=== PATIENT | male | born 1990 | race Caucasian/White ===

== ENCOUNTER 2024-09-06 22:49 | Emergency (ER) | payer OTHER, SELFPAY ==
[2024-09-06 22:52] VITALS: BP 116/74
[2024-09-07 00:28] LABS: Urine Albumin Negative (Neg - Trace); Urine Bilirubin Negative (Negative); Urine Character Clear (Clear); Urine Color Yellow; Urine Glucose Negative (Negative); Urine Ketone Negative (Negative); Urine Leukocyte Negative (Negative); Urine Nitrite Negative (Negative); Urine Occult Blood Negative (Negative); Urine Urobilinogen Negative (Neg - 1+)
--- NOTE | 2024-09-07 00:39 | ED.GENMED ---
History of Present Illness
General
Chief Complaint: Urinary Symptoms
Source: patient
Exam Limitations: none
Time Seen by Provider: 09/07/24 00:15
History of Present Illness
History of Present Illness:
This is a 34 year old male that comes in with c/o urinary tract infection. States that he had been treated for a UTi but he did not take his medication as he should have as he would forget. States that today he masturbated and he doesn't know if he
aggravated things. States that he has urinary burning and he felt that his penis was swollen. States that he had one Bactrim at home and he took this. Denies any fever, chills, chest pain, SOB, abd pain, nausea, vomiting, diarrhea, headache,
dizziness or urinary frequency.
Past History
Past History
ED Past Medical History: Other (UTI, )
ED Past Surgical History: Orthopedic (Left ACL repair) and Tonsilectomy
Social History
Tobacco: Non-smoker
Alcohol: None
Personal: Single
Living: alone
Review of Systems
Review of Systems
All Other Systems: ROS reviewed and negative except as documented in HPI and ROS
Constitutional: Reports no symptoms; Denies fever or chills
EENT: Reports no symptoms
Respiratory: Reports no symptoms; Denies cough or trouble breathing
Cardiac: Reports no symptoms; Denies chest pain
ABD/GI: Reports no symptoms; Denies abdominal pain, nausea, vomiting or diarrhea
: Reports dysuria; Denies frequency or urgency
Musculoskeletal: Reports no symptoms
Skin: Reports no symptoms
Neurological: Reports no symptoms; Denies dizzy or headache
Psychiatric: Reports no symptoms
Phy Exam
General Physical Exam
General Presentation: well appearing and no apparent distress
General age: appears stated age
General Skin: warm and dry
General Habitus: normal
General Mental: alert
General Hydration: appears well hydrated
ENT Exam
ENT Exam: TM's normal, pharynx normal and neck supple
Eye Exam
Eye Exam: EOMI
Cardiovascular Exam
Cardiovascular Exam: regular rate/rhythm, no edema, no murmur and normal peripheral pulses
Pulmonary Exam
Pulmonary Exam: lungs clear, no respiratory distress, no rales, chest non tender, no crackles, no rhonchi, no wheezing and no cough
Gastrointestinal Exam
Gastrointestinal Exam: normal bowel sounds, non tender, soft, no organomegaly, no pulsatile mass and non distended
Genitourinary Exam Male
Exam Male: circumcised, no discharge, no lesions and other (negative for penial swelling, or redness)
Musculoskeletal Exam
Musculoskeletal Exam: full ROM and no edema
Skin Exam
Skin Exam: normal color, warm/dry, no rash and no petechia
Psychiatric Exam
Psychiatric Exam: normal mood/affect
Course
Orders/Labs/Results
Orders:
Orders
09/07/24 00:19
Urinalysis Reflex To Culture Urgent
Date Specimen was Collected: 09/07/24
Time Specimen was Collected: 00:18
Urine negative or infection.
Vital Signs
Initial and Last Documented VS:
Initial Vital Signs
Temp Pulse Resp BP Pulse Ox
98.4 F 80 20 116/74 98
09/06/24 22:52 09/06/24 22:52 09/06/24 22:52 09/06/24 22:52 09/06/24 22:52
Last Documented Vital Signs
Temp Pulse Resp BP Pulse Ox
98.4 F 80 20 116/74 98
09/06/24 22:52 09/06/24 22:52 09/06/24 22:52 09/06/24 22:52 09/06/24 22:52
MDM/Problems Addressed
Differential Diagnosis Includes:
Small tears on the penis. UTi
MDM/Problems Addressed:
This is a 34 year old male that comes in with c/o feeling like he has a UTI. States that he masturbated today and after this he thought he had a UTI. Patient took One Bactrim that he had at home.
Will check urine.
Back into see patient. Explained that his urine is negative for infection or blood. There may be little cuts on the penis that are not seen due to his masturbating. Explained that a GC and chlamydia was added on. If this would come back positive
patient would be called. Patient to follow up with the family doctor as needed. Return with any concerns.
Chronic conditions affecting care:
UTi
Acute Exacerbation and/or Progression of Chronic Illness:
NA
*Pulse Oximetry
Patient hypoxic: no
*EKG
Interpreted by ED Provider?: NA
Rate: EKG- N/A
*Parole Director Interpretation
Rate: Parole Director- N/A
*Critical Care Note
Total Time (30-74mins, 75-104mins- exclusive of procedures): Not Applicable
ED Attending Note
-
Portions of this chart may have been created with voice recognition software.� Occasional wrong word or��sound alike� substitutions may have occurred due to the inherent limitations of voice recognition software.
Discharge Plan
Departure
Patient Disposition: Home (Routine Discharge)
Date of Disposition: 09/07/24
Time of Disposition: 00:48
Patient with high blood pressure during this ER visit?: No
Condition: Good
Covid-19: Not Applicable
Discharge Problem:
Symptoms of urinary tract infection
Prescriptions:
No Action
No Meds [No Current Medications]
Activity Restrictions/Additional Instructions:
As discussed, your urine is negative for infection or blood. There may be little cuts on the Penis form masturbation. A urine GC and Chlamydia was added on. If this would come back positive for infection you would be called. Please increase your
water intake to 8-8oz glasses daily. Follw up wtih the family doctor for recheck. IF YOU HAVE ANY OTHER CONCERNS PLEASE RETURN TO THE EMERGENCY ROOM.
Interventions
Interventions:
*Risk Screen - Suicide Last Done: 09/06/24 22:52
*Neglect/Abuse Screening Last Done: 09/06/24 22:52
ED-Male Genitourinary Assessment Last Done: 09/07/24 00:36
Discharge Date and Time
Print Language: CZECH
[2024-09-07 00:56] VITALS: BP 119/58
== END 2024-09-07 01:06 | disposition home or self-care (01) ==
LOC: EMR 22:49
PROVIDERS: EMERGENCY PHYSICIAN Student in an Organized Health Care Education/Training Program; FAMILY PHYSICIAN Family Medicine
DX: N39.0 Urinary tract infection, site not specified (principal); Z87.440 Personal history of urinary (tract) infections
CPT/HCPCS: 99282; 81003; 87491; 87591

== ENCOUNTER 2024-11-06 19:50 | Emergency (ER) | payer OTHER, SELFPAY ==
[2024-11-06 19:52] VITALS: BP 141/93
--- NOTE | 2024-11-06 20:38 | ED.GENMED ---
History of Present Illness
General
Chief Complaint: Male Genito-Urinary Symptoms
Source: patient
Exam Limitations: none
Time Seen by Provider: 11/06/24 20:29
History of Present Illness
History of Present Illness:
Patient complaining of burning pain to the tip of his penis. He had the same thing the other day was given an antifungal pill by his physician. He wants a stronger 1. There is no drainage no dysuria or frequency. States is worse after
masturbating. He has had this in the past.
Past History
Past History
ED Past Medical History: Other (UTI, )
ED Past Surgical History: Orthopedic (Left ACL repair) and Tonsilectomy
Social History
Tobacco: Non-smoker
Alcohol: None
Personal: Single
Living: alone
Review of Systems
Review of Systems
Constitutional: Denies fever or chills
Phy Exam
Physical Exam
Physical Exam:
General: Nontoxic appearing in no distress
Skin: Warm and dry, no rash
Neuro: Alert, nontoxic, grossly nonfocal
Psychiatric: Good eye contact and appropriate
Genitalia: Penis and shaft grossly normal. No ulceration. No obvious wound. No drainage. No urethral inflammation. Scrotum normal.
Course
Vital Signs
Initial and Last Documented VS:
Initial Vital Signs
Temp Pulse Resp BP Pulse Ox
98.6 F 110 16 141/93 95
11/06/24 19:52 11/06/24 19:52 11/06/24 19:52 11/06/24 19:52 11/06/24 19:52
Last Documented Vital Signs
Temp Pulse Resp BP Pulse Ox
98.6 F 110 16 141/93 95
11/06/24 19:52 11/06/24 19:52 11/06/24 19:52 11/06/24 19:52 11/06/24 19:52
*Pulse Oximetry
Patient hypoxic: no
*Critical Care Note
Total Time (30-74mins, 75-104mins- exclusive of procedures): Not Applicable
Update Note
Update Note:
I am not convinced he has a fungal infection of his penis. There is no clinical findings to support this. Patient insists on some medications to try for this. We will give him mupirocin and he is asking for an antibiotic. We will cover him with
doxycycline as a potential urethritis
ED Attending Note
-
Portions of this chart may have been created with voice recognition software.� Occasional wrong word or��sound alike� substitutions may have occurred due to the inherent limitations of voice recognition software.
Discharge Plan
Departure
Patient Disposition: Home (Routine Discharge)
Date of Disposition: 11/06/24
Time of Disposition: 21:22
Patient with high blood pressure during this ER visit?: Yes
Discharge Problem:
Possible penile rash, Dysuria
Prescriptions:
New
doxycycline hyclate 100 mg capsule
100 mg PO BID 7 Days Qty: 14 0RF
mupirocin 2 % ointment
1 applic topical DAILY Qty: 22 0RF
No Action
No Meds [No Current Medications]
Activity Restrictions/Additional Instructions:
Follow-up with your primary physician
Return if you notice worsening rash fever continued pain with urination or any other concerning symptoms
Interventions
Interventions:
*Risk Screen - Suicide Last Done: 11/06/24 19:52
*General Assessment Last Done: 11/06/24 19:52
*Neglect/Abuse Screening Last Done: 11/06/24 19:52
ED- Fall Risk Assessment Last Done: 11/06/24 20:55
*ED COVID-19 Vaccine History Last Done: 11/06/24 20:55
ED-Male Genitourinary Assessment Last Done: 11/06/24 20:55
Discharge Date and Time
Print Language: IRAQI
[2024-11-06 20:58] VITALS: BMI 26.1
[2024-11-06 21:40] VITALS: BP 127/81
== END 2024-11-06 21:40 | disposition home or self-care (01) ==
LOC: EMR 19:50
PROVIDERS: EMERGENCY PHYSICIAN Emergency Medicine; FAMILY PHYSICIAN Family Medicine
DX: N48.89 Other specified disorders of penis (principal); R30.0 Dysuria
CPT/HCPCS: 99283